=== PATIENT | female | born 1970 | race Caucasian/White ===

== ENCOUNTER 2020-04-08 11:10 | Emergency (ER) | payer BC, OTHER ==
--- NOTE | 2020-04-08 11:21 | EDM.PDOC ---
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 04/08/20 12:40 68 19 104/54 L 97 04/08/20 12:25 64 18 79/50 L 98 04/08/20 12:15 62 18 97/70 97 04/08/20 11:55 57 L 16 89/54 L 95 04/08/20 11:40 54 L 14 90/51 L 95 04/08/20 11:25 54 L 16 101/52 L 93 L 04/08/20 11:10 36.6 C 53 L 13 102/52 L 93 L - Problem List & Annotations (1) Chest pain SNOMED Code(s): 05050691 Code(s): R07.9 - CHEST PAIN, UNSPECIFIED Status: Acute Priority: High Current Visit: Yes Onset Date: 04/08/20 Annotation/Comment:: Chest pain protocol initiated immediately upon patient's arrival to the emergency room. Aggressive medical therapy as above with symptoms somewhat refractory to patient's therapy. Initial nitro-paste therapy was discontinued secondary to mild hypotension without sequelae with patient tolerating low-dose IV nitroglycerin infusion well. Telephone consultation at 12:[address] Santos, emergency room physician at [facility] in [place], who does agree to accept the patient for direct admission and further cardiology consultation, etc., no further treatment recommendations given. He does agree to contact the hospitalist for concerning this admission. Ambulance transfer with residential manager accompaniment. Note that the patient is requesting transfer to [facility] in spite of her having [employer] insurance?. Vital signs and clinical exam are stable at time of patient's discharge with complete resolution of her chest pain prior to transfer. Qualifiers: Chest pain type: precordial pain Qualified Code(s): R07.2 - Precordial pain (2) Bradycardia SNOMED Code(s): 96195234 Code(s): R00.1 - BRADYCARDIA, UNSPECIFIED Status: Chronic Priority: High Current Visit: Yes Annotation/Comment:: More progressive bradycardia since previously present by patient history possibly secondary to her cardiac ischemia. Note that she is on beta sharita therapy. No additional beta blockers given in the emergency room. (3) Near syncope SNOMED Code(s): 840729935 Code(s): R55 - SYNCOPE AND COLLAPSE Status: Chronic Priority: High Current Visit: Yes Annotation/Comment:: History of recurrent near syncope of unknown etiology as above. Cardiology consultation including possible heart catheterization, echocardiogram, etc. are advisable. (4) Elevated CK SNOMED Code(s): 127591783 Code(s): R74.8 - ABNORMAL LEVELS OF OTHER SERUM ENZYMES Status: Acute Priority: High Current Visit: Yes Onset Date: 04/08/20 Annotation/Comment:: She has been physically active recently. She states that she has been drinking plenty of fluids despite current high temperatures and humidity. No direct evidence of rhabdomyolysis. Note elevated CK-MB with normal cardiac index and troponin I. Only minimally elevated BNP with no clinical evidence of CHF. D-dimer was negative. Secondary to hypotension, hypokalemia, and CK-MB elevation patient was initiated on a liter IV bolus of lactated Ringer's in the emergency room. (5) Asthma SNOMED Code(s): 668474873 Code(s): J45.909 - UNSPECIFIED ASTHMA, UNCOMPLICATED Status: Chronic Priority: Medium Current Visit: Yes Annotation/Comment:: Stable by history with no recent fever or bronchitic type symptoms. Qualifiers: Asthma severity: mild Asthma persistence: intermittent Asthma complication type: uncomplicated Qualified Code(s): J45.20 - Mild intermittent asthma, uncomplicated (6) Hyperlipidemia SNOMED Code(s): 12747173 Code(s): E78.5 - HYPERLIPIDEMIA, UNSPECIFIED Status: Chronic Priority: Medium Current Visit: Yes Annotation/Comment:: Currently diet controlled. Recommended fasting lipid panel and glycosylated hemoglobin by accepting providers. Weight Loss in moderation is advisable. Qualifiers: Hyperlipidemia type: unspecified Qualified Code(s): E78.5 - Hyperlipidemia, unspecified (7) Hypertension SNOMED Code(s): 43486035 Code(s): I10 - ESSENTIAL (PRIMARY) HYPERTENSION Status: Chronic Priority: High Current Visit: Yes Annotation/Comment:: Stable by history. Note recurrent history of near syncopal episodes, including today. Mild hypotension secondary to medications today, improved at time of transfer as above. Qualifiers: Hypertension type: essential hypertension Qualified Code(s): I10 - Essential (primary) hypertension (8) Hypokalemia SNOMED Code(s): 15214389 Code(s): E87.6 - HYPOKALEMIA Status: Chronic Priority: High Current Visit: Yes Annotation/Comment:: Patient has been noncompliant with her OTC potassium supplementation. Oral potassium given with additional IV lactated Ringer's as above. No recent emesis, diarrhea, etc. (9) Hypothyroidism (acquired) SNOMED Code(s): 982569223 Code(s): E03.9 - HYPOTHYROIDISM, UNSPECIFIED Status: Chronic Priority: Medium Current Visit: Yes Annotation/Comment:: Currently under therapy. TSH normal today. (10) LFT elevation SNOMED Code(s): 127189838, 392100045 Code(s): R79.89 - OTHER SPECIFIED ABNORMAL FINDINGS OF BLOOD CHEMISTRY Status: Acute Priority: Medium Current Visit: Yes Onset Date: 04/08/20 Annotation/Comment:: Likely secondary to fatty liver. Observe for now. (11) Mixed anxiety depressive disorder SNOMED Code(s): 172123058 Code(s): F41.8 - OTHER SPECIFIED ANXIETY DISORDERS Status: Chronic Priority: Medium Current Visit: Yes Annotation/Comment:: Stable by history. Moderate control based on today's evaluation. Continue to observe closely by accepting and regular providers. (12) Osteoarthritis SNOMED Code(s): 338523574 Code(s): M19.90 - UNSPECIFIED OSTEOARTHRITIS, UNSPECIFIED SITE Status: Chronic Priority: Medium Current Visit: Yes Annotation/Comment:: Stable by history with no history of fall, injury, etc. Qualifiers: Osteoarthritis location: multiple joints Osteoarthritis type: primary Qualified Code(s): M89.49 - Other hypertrophic osteoarthropathy, multiple sites - Problem List Review Problem List Initiated/Reviewed/Updated: Yes - My Orders Last 24 Hours: My Active Orders 04/08/20 Breakfast Nothing per Oral Now Diet [DIET] 04/08/20 11:22 Cardiac Monitoring [RC] . DIRECTED EKG Documentation Completion [RC] ASDIRECTED Oxygen Therapy, ED [RC] CONTINUOUS Peripheral IV Care [RC] . DIRECTED Pulse Oximetry [RC] PRN Up With Assistance [RC] PFP Vital Signs [RC] PFP Chest 1V Frontal [CR] Stat Sodium Chloride 0.9% [Saline Flush] 10 ml FLUSH ASDIRECTED PRN Obtain Past Medical Record [OM.PC] Urgent Peripheral IV Insertion Adult [OM.PC] Stat Resuscitation Status Stat 04/08/20 12:03 Peripheral IV Care [RC] . DIRECTED Sodium Chloride 0.9% [Saline Flush] 10 ml FLUSH ASDIRECTED PRN Peripheral IV Insertion Adult [OM.PC] Routine 04/08/20 12:04 EKG Documentation Completion [RC] ASDIRECTED 04/08/20 12:15 Heparin Sodium/0.45% NaCl [Heparin 25,000 Units in 1/2 NS 500 ML] 500 ml IV TITRATE Nitroglycerin/D5W [Nitroglycerin 25 MG/D5W 250 ML] 25 mg in 250 ml IV TITRATE Sodium Chloride 0.9% [Normal Saline] 1,000 ml IV ASDIRECTED - Assessment/Plan Last 24 Hours: My Active Orders 04/08/20 Breakfast Nothing per Oral Now Diet [DIET] 04/08/20 11:22 Cardiac Monitoring [RC] . DIRECTED EKG Documentation Completion [RC] ASDIRECTED Oxygen Therapy, ED [RC] CONTINUOUS Peripheral IV Care [RC] . DIRECTED Pulse Oximetry [RC] PRN Up With Assistance [RC] PFP Vital Signs [RC] PFP Chest 1V Frontal [CR] Stat Sodium Chloride 0.9% [Saline Flush] 10 ml FLUSH ASDIRECTED PRN Obtain Past Medical Record [OM.PC] Urgent Peripheral IV Insertion Adult [OM.PC] Stat Resuscitation Status Stat 04/08/20 12:03 Peripheral IV Care [RC] . DIRECTED Sodium Chloride 0.9% [Saline Flush] 10 ml FLUSH ASDIRECTED PRN Peripheral IV Insertion Adult [OM.PC] Routine 04/08/20 12:04 EKG Documentation Completion [RC] ASDIRECTED 04/08/20 12:15 Heparin Sodium/0.45% NaCl [Heparin 25,000 Units in 1/2 NS 500 ML] 500 ml IV TITRATE Nitroglycerin/D5W [Nitroglycerin 25 MG/D5W 250 ML] 25 mg in 250 ml IV TITRATE Sodium Chloride 0.9% [Normal Saline] 1,000 ml IV ASDIRECTED Assessment:: As above Plan: As above. Extensive precautions were given to the patient and her , who are in agreement with the treatment plan. Ambulance transfer as above.
[2020-04-08] MEDS ORDERED: Sodium Chloride 0.9% 10 ML Syringe FLUSH PRN ×2 (11:22→12:03)
[2020-04-08] MEDS ORDERED: Famotidine 20 MG/2 ML SDV IVPUSH ONE (11:22)
[2020-04-08] MEDS ORDERED: Ticagrelor 90 MG Tab PO ONE (11:22)
[2020-04-08] MEDS ORDERED: Aspirin 81 MG Tab.Chew CHEW ONE (11:22)
[2020-04-08] MEDS ORDERED: Nitroglycerin 0.4 MG Tab.SL SL STA (11:30)
[2020-04-08] MEDS ORDERED: Nitroglycerin 2% Oint 1 GM UD Packet TOP ONE (11:34)
[2020-04-08 11:42] LABS: PTT,PARTIAL THROMBOPLSTIN TIME 24.3 SEC (24.5-32.8)
[2020-04-08 11:53] LABS: CHLORIDE,CL 101 mmol/L (98-107); SODIUM,NA 138 mmol/L (136-145)
[2020-04-08] MEDS ORDERED: Potassium Chloride 20 MEQ Tab.ER PO ONE (12:02)
[2020-04-08] MEDS ORDERED: Lactated Ringers 1,000 ML IV ONE (12:02)
[2020-04-08] MEDS ORDERED: Heparin Sodium 5,000 Units/ML Vial IVPUSH ONE (12:14)
[2020-04-08] MEDS ORDERED: Sodium Chloride 0.9% 1,000 ML IV SCH (12:15)
[2020-04-08] MEDS ORDERED: Heparin Sodium/0.45% NaCl 500 ML IV SCH (12:15)
[2020-04-08] MEDS ORDERED: Nitroglycerin/D5W 25 MG/250 ML BOTTLE IV SCH (12:15)
[2020-04-08] MEDS ORDERED: Heparin Sodium/0.45% NaCl 500 ML ONE (12:22)
== END 2020-04-08 13:25 ==
LOC: LL.ED 11:10
DX: R07.2 Precordial pain (principal); E87.6 Hypokalemia; R00.1 Bradycardia, unspecified; R79.89 Other specified abnormal findings of blood chemistry; F41.8 Other specified anxiety disorders; R74.8 Abnormal levels of other serum enzymes; E03.9 Hypothyroidism, unspecified; R55 Syncope and collapse; I10 Essential (primary) hypertension; E78.5 Hyperlipidemia, unspecified; J45.20 Mild intermittent asthma, uncomplicated; M89.49 Other hypertrophic osteoarthropathy, multiple sites; Z87.891 Personal history of nicotine dependence; Z88.8 Allergy status to other drugs, medicaments and biological substances; Z91.030 Bee allergy status; Z79.899 Other long term (current) drug therapy
CPT/HCPCS: 36415; 71045; 80053; 82550; 82553; 83605; 83735; 83880; 84443; 84484; 84550; 85025; 85379; 85610; 85730; 93005; 96365; 96368; 96375; 99285; A9270; J1644; J3490; J7030; J7120

== ENCOUNTER 2021-04-17 01:45 | Emergency (ER) | payer BC, OTHER ==
[2021-04-17] MEDS ORDERED: Sodium Chloride 0.9% 1,000 ML IV ONE ×2 (02:17→02:50)
[2021-04-17] MEDS ORDERED: Sodium Chloride 0.9% 10 ML Syringe FLUSH PRN (02:17)
[2021-04-17] MEDS ORDERED: Norepinephrine 4 MG/4 ML SDV ONE (02:33)
[2021-04-17] MEDS ORDERED: Piperacillin/Tazobactam 3.375 GM in Sodium Chloride 0.9% 100 ML IV ONE (02:44)
[2021-04-17] MEDS ORDERED: Norepinephrine 4 MG in Dextrose 5% in Water 246 ML IV SCH ×2 (02:45)
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
[2021-04-17] MEDS ORDERED: Potassium Chloride 20 MEQ Tab.ER PO ONE (03:24)
== END 2021-04-17 04:00 ==
LOC: LL.ED 01:45
DX: I95.9 Hypotension, unspecified (principal); E78.00 Pure hypercholesterolemia, unspecified; I10 Essential (primary) hypertension; E03.9 Hypothyroidism, unspecified; E66.9 Obesity, unspecified; Z68.42 Body mass index [BMI] 45.0-49.9, adult; Z79.899 Other long term (current) drug therapy; Z91.030 Bee allergy status; Z91.041 Radiographic dye allergy status; Z79.82 Long term (current) use of aspirin
CPT/HCPCS: 36415; 70450; 71045; 80053; 82947; 83605; 83735; 83880; 84484; 85025; 87040; 93005; 96365; 96368; 99285; A9270; J2543; J3370; J7030; J7050; J7060; 93010; 99284

== ENCOUNTER 2022-11-24 17:49 | Emergency (ER) | payer OTHER ==
[2022-11-24] MEDS: Glucagon,Human Recombinant 1 MG Vial IM ONE (18:23)
[2022-11-24] MEDS: Lactated Ringers 1,000 ML IV ONE (18:58)
== END 2022-11-24 19:50 | disposition home or self-care (01) ==
LOC: LL.ED 17:49
DX: R13.10 Dysphagia, unspecified (principal); E78.00 Pure hypercholesterolemia, unspecified; I10 Essential (primary) hypertension; E03.9 Hypothyroidism, unspecified; E66.9 Obesity, unspecified; Z79.82 Long term (current) use of aspirin; Z79.899 Other long term (current) drug therapy; Z87.891 Personal history of nicotine dependence; Z68.41 Body mass index [BMI] 40.0-44.9, adult
CPT/HCPCS: 96360; 96372; 99283-25; 99284; J1610; J7120

== ENCOUNTER 2023-01-28 10:19 | Emergency (ER) | payer OTHER ==
[2023-01-28] MEDS: methylPREDNISolone Sodium Succinate 125 MG/2 ML SDV IM ONE (11:17)
[2023-01-28] MEDS: Albuterol/Ipratropium 3.0-0.5 MG/3 ML Neb Soln NEB ONE (12:05)
== END 2023-01-28 12:50 | disposition home or self-care (01) ==
LOC: LL.ED 10:19
DX: J45.41 Moderate persistent asthma with (acute) exacerbation (principal); K20.0 Eosinophilic esophagitis; E78.00 Pure hypercholesterolemia, unspecified; I10 Essential (primary) hypertension; E78.5 Hyperlipidemia, unspecified; E03.9 Hypothyroidism, unspecified; E66.9 Obesity, unspecified; Z68.30 Body mass index [BMI] 30.0-30.9, adult; Z91.030 Bee allergy status; Z91.041 Radiographic dye allergy status; Z88.8 Allergy status to other drugs, medicaments and biological substances
CPT/HCPCS: 71046; 94640; 96372; 99284; J2930; J7620-GY